=== PATIENT | female | born 1950 | race Hispanic/Latino ===

== ENCOUNTER → 2024-11-10 | Outpatient (CLI) | payer OTHER ==
[~2024-11-10] MED LIST: IOHEXOL 350 MG/ML 100ML INFUS..BTL IV ONE
--- NOTE | 2024-11-10 10:43 | HMCIMG ---
CT ABDOMEN/PELVIS W/WO CONTRAS REASON: DIGESTIVE DISEASE COMPARISON: None. TECHNIQUE: Images are obtained from lung bases through the symphysis pubis following IV contrast, 100 cc Omnipaque 350. Oral contrast was administered as well. FINDINGS: Cardiomegaly. There is no pulmonary vascular congestion or pleural effusion. Lung bases are clear. There are no focal liver lesions. There are normal-appearing kidneys.. Spleen and pancreas appear unremarkable. There has been a previous cholecystectomy. There is a moderate to large amount solid fecal material in the rectosigmoid colon which could represent constipation. Bowel loops appear otherwise unremarkable. Bowel loops appear unremarkable. There is no CT evidence of acute appendicitis. There is no evidence of free fluid or intraperitoneal air. There are no focal fluid collections. Aorta and retroperitoneum appear normal as do pelvic soft tissue structures. The anterior abdominal wall is intact. Osseous structures appear unremarkable. IMPRESSION: 1. Moderate to large amount solid thickened material in rectosigmoid colon, this could represent constipation. 2. Cardiomegaly. 3. Absent gallbladder. 4. Otherwise unremarkable pre and postcontrast CT abdomen and pelvis. CT was performed with one or more following dose reduction techniques: automated exposure control, adjustment of the mA and kv according to patient's size, or use of a iterative reconstruction technique.
== END | disposition home or self-care (01) ==
LOC: RAH 09:14
PROVIDERS: ATTEND Family Medicine
DX: K76.0 Fatty (change of) liver, not elsewhere classified (principal); K75.9 Inflammatory liver disease, unspecified; I51.7 Cardiomegaly; Z90.49 Acquired absence of other specified parts of digestive tract; Z87.19 Personal history of other diseases of the digestive system
CPT/HCPCS: 74178; Q9967